=== PATIENT | male | born 1950 | race Two or more races ===

== ENCOUNTER 2020-12-14 14:08 | Outpatient (CLI) | payer OTHER | END 2020-12-14 15:21 | disposition home or self-care (01) | LOC: OFIC 805 14:08 | PROVIDERS: ATTEND Otolaryngology Otology & Neurotology | DX: R42 Dizziness and giddiness (principal); H61.21 Impacted cerumen, right ear; H90.41 Sensorineural hearing loss, unilateral, right ear, with unrestricted hearing on the contralateral side ==